=== PATIENT | male | born 1975 | race Caucasian/White ===

== ENCOUNTER 2020-05-05 12:18 | Inpatient (IN) ==
[2020-05-05 12:49] LABS: ABG Base Excess -1.5 MMOL/L (-2.5-2.5); ABG HCO3 23.2 MMOL/L (20-26); ABG PCO2 35.7 MM HG (35-48)
[2020-05-05] MEDS ORDERED: PIPERACILLIN/TAZOBACTAM 3,375 MG in SODIUM CHLORIDE 0.9% 100 ML IV STA (13:00)
[2020-05-05] MEDS ORDERED: DEXAMETHASONE 10 MG/1 ML VIAL IV STA (13:00)
[2020-05-05 13:26] LABS: Basophils % 0.1 % (0.0-0.8); Hematocrit 34.7 VOL% (42.0-52.0); Hemoglobin 11.8 GM/DL (14.0-18.0); Immature Granulocytes Absolute 0.12 #; Lymphocytes # 0.4 10*3/uL (1.4-4.0); Lymphocytes % 3.4 % (21.2-54.2); Mean Corpuscular Volume 83.2 FL (87-102); Monocytes % 7.6 % (1.7-12.7); Neutrophils % 87.9 % (38.7-73.9); Platelet Count 233 T/CUMM (130-400); Red Blood Count 4.17 MC/CUMM (3.8-5.5); Red Cell Distribution Width 12.5 % (9.3-17.3); White Blood Count 12.3 T/CUMM (4-12)
[2020-05-05 13:39] LABS: INR 1.1; PT Patient Result 11.9 SECS (9.8-11.9); Partial Thromboplastin Time 29.9 SECS (23.9-33.8)
[2020-05-05 13:42] LABS: Calcium 7.8 MG/DL (8.5-10.1); Osmolality,Calculated 280.5 MOS/KG (273-304)
[2020-05-05] MEDS ORDERED: MIDAZOLAM 100 MG in SODIUM CHLORIDE 0.9% 80 ML IV SCH (14:00)
[2020-05-05] MEDS ORDERED: ONDANSETRON 4 MG/2 ML VIAL IV PRN (14:08)
[2020-05-05] MEDS: ENOXAPARIN 40 MG/0.4 ML SYRINGE SUBCUT SCH (14:38)
[2020-05-05] MEDS: LACTATED RINGERS 1,000 ML IV SCH ×2 (14:38→23:44)
[2020-05-05] MEDS: PANTOPRAZOLE 40 MG VIAL IV SCH (14:39)
[2020-05-05] MEDS: MORPHINE 4 MG/1 ML VIAL IV PRN (14:39)
[2020-05-05 17:27] LABS: Lymphocytes 6 % (20-55); Segmented Neutrophils 82 % (50-85); Total Cells Counted 100
[2020-05-05] MEDS ORDERED: fentaNYL 100 MCG/2 ML VIAL ONE (17:43)
[2020-05-05] MEDS ORDERED: ROCURONIUM 50 MG/5 ML VIAL IV ONE (17:43)
[2020-05-05] MEDS ORDERED: MIDAZOLAM 2 MG/2 ML VIAL ONE ×2 (17:43→17:44)
[2020-05-05] MEDS ORDERED: propofoL 200 MG/20 ML VIAL IV ONE (17:43)
[2020-05-05] MEDS ORDERED: SEVOFLURANE 1 UNIT/15 MINUTE INH ONE (18:21)
[2020-05-05] MEDS: DEXAMETHASONE 4 MG/1 ML VIAL IV SCH (20:59)
[2020-05-05] MEDS: CHLORHEXIDINE 0.12% ORAL RINSE 60 ML BOTTLE SWISH/SPIT SCH (21:00)
[2020-05-05] MEDS: PIPERACILLIN/TAZOBACTAM 3,375 MG in SODIUM CHLORIDE 0.9% 100 ML IV SCH (21:04)
[2020-05-06] MEDS ORDERED: MIDAZOLAM 100 MG in SODIUM CHLORIDE 0.9% 80 ML IV PRN (00:30)
[2020-05-06] MEDS: DEXAMETHASONE 4 MG/1 ML VIAL IV SCH ×3 (03:24→18:39)
[2020-05-06 04:27] LABS: Basophils % 0.2 % (0.0-0.8); Hematocrit 33.6 VOL% (42.0-52.0); Hemoglobin 11.4 GM/DL (14.0-18.0); Immature Granulocytes % 0.8 %; Immature Granulocytes Absolute 0.08 #; Lymphocytes # 0.7 10*3/uL (1.4-4.0); Lymphocytes % 6.1 % (21.2-54.2); Mean Corpuscular HGB Conc 33.9 GM/DL (32-36); Mean Corpuscular Volume 84.4 FL (87-102); Mean Platelet Volume 10.8 FL (9.6-12.0); Monocytes % 6.2 % (1.7-12.7); Neutrophils % 86.7 % (38.7-73.9); Platelet Count 232 T/CUMM (130-400); Red Blood Count 3.98 MC/CUMM (3.8-5.5); Red Cell Distribution Width 12.7 % (9.3-17.3); White Blood Count 10.6 T/CUMM (4-12)
[2020-05-06 04:41] LABS: Allen Test Positive; Pt O2 Delivery Device Ventilator
[2020-05-06 04:42] LABS: ABG Base Excess 0.1 MMOL/L (-2.5-2.5); ABG HCO3 22.9 MMOL/L (20-26); ABG Oxygen Saturation 98.9 % (95-100); ABG PCO2 31.2 MM HG (35-48); ABG PH 7.484 (7.35-7.45); ABG PO2 169.5 MM HG (80-95); ABG TCO2 23.9 MMOL/L (23-27)
[2020-05-06 05:09] LABS: Calcium 8.1 MG/DL (8.5-10.1); Osmolality,Calculated 284.3 MOS/KG (273-304)
[2020-05-06] MEDS: PIPERACILLIN/TAZOBACTAM 3,375 MG in SODIUM CHLORIDE 0.9% 100 ML IV SCH ×3 (06:06→21:25)
[2020-05-06 08:46] LABS: ABG Base Excess 0.7 MMOL/L (-2.5-2.5); ABG Oxygen Saturation 98.8 % (95-100); ABG PH 7.484 (7.35-7.45); ABG TCO2 20.5 MMOL/L (23-27)
[2020-05-06] MEDS: MORPHINE 4 MG/1 ML VIAL IV PRN ×2 (09:44→20:57)
[2020-05-06] MEDS: CHLORHEXIDINE 0.12% ORAL RINSE 60 ML BOTTLE SWISH/SPIT SCH ×2 (09:44→21:25)
[2020-05-06] MEDS: LACTATED RINGERS 1,000 ML IV SCH (09:52)
[2020-05-06] MEDS: ENOXAPARIN 40 MG/0.4 ML SYRINGE SUBCUT SCH (13:34)
[2020-05-06] MEDS: PANTOPRAZOLE 40 MG VIAL IV SCH (13:52)
[2020-05-06] MEDS: HYDROmorphone 2 MG/1 ML VIAL IV PRN (23:50)
[2020-05-07] MEDS: LACTATED RINGERS 1,000 ML IV SCH ×3 (01:05→15:56)
[2020-05-07] MEDS: DEXAMETHASONE 4 MG/1 ML VIAL IV SCH ×2 (04:15→11:52)
[2020-05-07] MEDS: PIPERACILLIN/TAZOBACTAM 3,375 MG in SODIUM CHLORIDE 0.9% 100 ML IV SCH ×3 (04:16→20:41)
[2020-05-07 04:33] LABS: Basophils # 0.1 10*3/uL (0.0-0.2); Basophils % 0.4 % (0.0-0.8); Hematocrit 37.9 VOL% (42.0-52.0); Hemoglobin 12.8 GM/DL (14.0-18.0); Immature Granulocytes % 2.3 %; Immature Granulocytes Absolute 0.39 #; Lymphocytes # 1.2 10*3/uL (1.4-4.0); Lymphocytes % 7.2 % (21.2-54.2); Mean Corpuscular HGB Conc 33.8 GM/DL (32-36); Mean Corpuscular Volume 84.8 FL (87-102); Mean Platelet Volume 10.4 FL (9.6-12.0); Monocytes % 8.7 % (1.7-12.7); Neutrophils % 81.4 % (38.7-73.9); Platelet Count 302 T/CUMM (130-400); Red Blood Count 4.47 MC/CUMM (3.8-5.5); Red Cell Distribution Width 12.6 % (9.3-17.3)
[2020-05-07 04:53] LABS: Calcium 8.5 MG/DL (8.5-10.1); Osmolality,Calculated 286.3 MOS/KG (273-304)
[2020-05-07] MEDS: ACETAMINOPHEN 325 MG TABLET PO PRN ×2 (07:57→13:14)
[2020-05-07] MEDS: CHLORHEXIDINE 0.12% ORAL RINSE 60 ML BOTTLE SWISH/SPIT SCH ×2 (08:18→20:34)
[2020-05-07] MEDS: PANTOPRAZOLE 40 MG VIAL IV SCH (15:55)
[2020-05-07] MEDS: ENOXAPARIN 40 MG/0.4 ML SYRINGE SUBCUT SCH (15:55)
[2020-05-07] MEDS: LORazepam 2 MG/1 ML VIAL IV PRN (20:42)
[2020-05-07] MEDS: HYDROmorphone 2 MG/1 ML VIAL IV PRN (23:48)
[2020-05-08] MEDS: PIPERACILLIN/TAZOBACTAM 3,375 MG in SODIUM CHLORIDE 0.9% 100 ML IV SCH ×3 (04:18→21:37)
[2020-05-08] MEDS: LORazepam 2 MG/1 ML VIAL IV PRN ×5 (04:19→21:36)
[2020-05-08 05:53] LABS: Basophils # 0.1 10*3/uL (0.0-0.2); Basophils % 0.9 % (0.0-0.8); Eosinophils % 0.1 % (0.00-10.9); Hematocrit 41.8 VOL% (42.0-52.0); Hemoglobin 14.2 GM/DL (14.0-18.0); Immature Granulocytes % 5.8 %; Immature Granulocytes Absolute 0.87 #; Lymphocytes # 2.7 10*3/uL (1.4-4.0); Lymphocytes % 18.2 % (21.2-54.2); Mean Corpuscular Volume 83.6 FL (87-102); Mean Platelet Volume 10.4 FL (9.6-12.0); Monocytes % 9.2 % (1.7-12.7); NRBC # 0.03 10*3/uL; Neutrophils % 65.8 % (38.7-73.9); Platelet Count 365 T/CUMM (130-400); White Blood Count 15.1 T/CUMM (4-12)
[2020-05-08 06:11] LABS: Osmolality,Calculated 283.4 MOS/KG (273-304)
[2020-05-08 07:34] LABS: Hypochromasia 1+; Lymphocytes 24 % (20-55); Microcytosis 1+; Segmented Neutrophils 68 % (50-85); Total Cells Counted 100
[2020-05-08 07:35] LABS: Platelet Estimate Normal
[2020-05-08] MEDS: CHLORHEXIDINE 0.12% ORAL RINSE 60 ML BOTTLE SWISH/SPIT SCH ×2 (09:21→21:37)
[2020-05-08] MEDS: ACETAMINOPHEN 325 MG TABLET PO PRN (09:21)
[2020-05-08] MEDS ORDERED: POTASSIUM CHLORIDE 20 MEQ TABLET PO ONE (10:15)
[2020-05-08 10:44] LABS: Basophils # 0.1 10*3/uL (0.0-0.2); Basophils % 0.9 % (0.0-0.8); Eosinophils % 0.1 % (0.00-10.9); Hematocrit 39.5 VOL% (42.0-52.0); Hemoglobin 13.2 GM/DL (14.0-18.0); Immature Granulocytes % 5.9 %; Immature Granulocytes Absolute 0.71 #; Lymphocytes # 2.5 10*3/uL (1.4-4.0); Lymphocytes % 20.5 % (21.2-54.2); Mean Corpuscular HGB Conc 33.4 GM/DL (32-36); Mean Corpuscular Volume 84.8 FL (87-102); Mean Platelet Volume 10.1 FL (9.6-12.0); Monocytes % 12.8 % (1.7-12.7); Neutrophils % 59.8 % (38.7-73.9); Platelet Count 303 T/CUMM (130-400); Red Blood Count 4.66 MC/CUMM (3.8-5.5)
[2020-05-08 11:11] LABS: Calcium 8.4 MG/DL (8.5-10.1); Osmolality,Calculated 282.4 MOS/KG (273-304)
[2020-05-08 11:24] LABS: Hypochromasia 1+; Lymphocytes 26 % (20-55); Segmented Neutrophils 64 % (50-85); Total Cells Counted 100
[2020-05-08 11:25] LABS: Microcytosis 1+; Platelet Estimate Normal
[2020-05-08] MEDS: LACTATED RINGERS 1,000 ML IV SCH (13:18)
[2020-05-08] MEDS: ENOXAPARIN 40 MG/0.4 ML SYRINGE SUBCUT SCH (21:36)
[2020-05-09] MEDS: PIPERACILLIN/TAZOBACTAM 3,375 MG in SODIUM CHLORIDE 0.9% 100 ML IV SCH (05:10)
[2020-05-09] MEDS: HYDROmorphone 2 MG/1 ML VIAL IV PRN (05:11)
[2020-05-09] MEDS: LACTATED RINGERS 1,000 ML IV SCH (05:12)
[2020-05-09 06:04] LABS: Basophils # 0.1 10*3/uL (0.0-0.2); Basophils % 0.8 % (0.0-0.8); Eosinophils # 0.1 10*3/uL (0.0-0.87); Eosinophils % 0.6 % (0.00-10.9); Hematocrit 42.1 VOL% (42.0-52.0); Hemoglobin 14.1 GM/DL (14.0-18.0); Immature Granulocytes % 7.3 %; Immature Granulocytes Absolute 0.92 #; Lymphocytes # 2.5 10*3/uL (1.4-4.0); Lymphocytes % 19.8 % (21.2-54.2); Mean Corpuscular HGB Conc 33.5 GM/DL (32-36); Mean Corpuscular Volume 84.4 FL (87-102); Mean Platelet Volume 10.1 FL (9.6-12.0); Monocytes % 11.8 % (1.7-12.7); Neutrophils % 59.7 % (38.7-73.9); Platelet Count 327 T/CUMM (130-400); Red Blood Count 4.99 MC/CUMM (3.8-5.5); Red Cell Distribution Width 12.9 % (9.3-17.3); White Blood Count 12.6 T/CUMM (4-12)
[2020-05-09 06:19] LABS: Calcium 8.5 MG/DL (8.5-10.1); Osmolality,Calculated 273.8 MOS/KG (273-304)
[2020-05-09 07:55] LABS: Atypical Lymphocytes Few; Band Neutrophils 3 % (0-10); Eosinophils 1 % (0-10); Lymphocytes 25 % (20-55); Metamyelocytes 3 %; Myelocytes 2 %; Platelet Estimate Normal; Segmented Neutrophils 56 % (50-85); Total Cells Counted 100
[2020-05-09 07:56] LABS: Anisocytosis Slight; Macrocytosis Slight
[2020-05-09 07:58] VITALS: BP 139/95
[2020-05-09] MEDS: LORazepam 2 MG/1 ML VIAL IV PRN (08:53)
[2020-05-09] MEDS: CHLORHEXIDINE 0.12% ORAL RINSE 60 ML BOTTLE SWISH/SPIT SCH (08:53)
== END 2020-05-09 10:44 | disposition home or self-care (01) | DRG 143 ==
LOC: N.ED 12:18 → N.EDINP 14:08 → SUATTDRO 14:08 → N.ICU 15:00 → N.5E 05-07 13:04
PROVIDERS: ADMIT Internal Medicine; ATTEND Family Medicine